=== PATIENT | female | born 1965 | race Caucasian/White ===

== ENCOUNTER → 2018-09-11 08:36 | Outpatient (CLI) | payer OTHER, SELFPAY ==
[2018-09-11 10:42] LABS: Free T4, Direct Thyroxine 1.14 ng/dL (0.78-2.19)
[2018-09-11 10:56] LABS: Thyroid Stimulating Hormone 0.77 uIU/mL (0.47-4.68)
== END ==
PROVIDERS: PCP Internal Medicine; Visit Provider Internal Medicine
DX: E03.9 Hypothyroidism, unspecified (principal)
CPT/HCPCS: 36415; 84439; 84443

== ENCOUNTER 2018-11-29 03:42 | Emergency (ER) | payer OTHER, SELFPAY ==
[2018-11-29 03:45] VITALS: BP 117/78; PULSE 76; RESP 18; TEMP 36.6; O2SAT 100; BMI 24.3
--- NOTE | 2018-11-29 03:57 | ED_ITS ---
HPI - Fall General Chief Complaint: Fall Stated Complaint: dog caused fall, hit head blacked out Time Seen by Provider: 11/29/18 03:56 Source: patient Mode of arrival: ambulatory Limitations: no limitations History of Present Illness HPI Narrative: Prior to arrival patient was up at home. As she negotiated, her dog came up behind her and tripped her. She fell backward on the floor in her bedroom, striking the back of her head. She has a mild headache, but has no focal pain in the head. She reports brief LOC and confusion. She reports feeling fuzzy for a few minutes. she is healthy, oriented, and nearly asymptomatic upon arrival. She has no bleeding from the nose, mouth or ears. No swelling or pain on the head. Vision is normal. She has no tenderness in her back or neck. She has no weakness in her extremities. She is alert, she drove herself to the ER. Related Data Previous Rx's Medication Instructions Recorded levothyroxine 150 mcg tablet 150 mcg PO QAM #90 tab 09/09/18 amitriptyline 10 mg tablet 10 mg PO Q DAY #90 tab 09/20/18 cetirizine 10 mg tablet 10 mg PO Q DAY #90 tab 09/20/18 citalopram 20 mg tablet 20 mg PO QDAY #90 tab 09/20/18 montelukast 10 mg tablet 10 mg PO QDAY #90 tab 09/20/18 Allergies Allergy/AdvReac Type Severity Reaction Status Date / Time retapamulin [RETAPAMULIN] Allergy Mild REDNESS/NON Verified 07/17/18 08:22 HEALING WOUND Review of Systems Review of Systems ROS Unobtainable: All systems reviewed & are unremarkable except as noted in HPI and below Constitutional Reports as per HPI, Denies chills, Denies lethargy, Denies weakness and Reports other ( Minor headache) Eyes Denies change in vision and Denies loss of vision ENT Ears, Nose, Mouth, and Throat: Reports as per HPI, Denies change in voice, Denies vertigo, Reports dizziness ( initially, now improved.), Denies neck pain and Denies sore throat Cardiovascular Denies lightheadedness and Denies palpitations Musculoskeletal Denies back pain, Denies muscle weakness and Denies neck pain Neurologic Denies behavioral changes, Denies vertigo, Reports dizziness ( initially, now improved.), Denies loss of vision and Denies weakness Psychiatric Denies behavioral changes Endocrine Denies palpitations Exam Initial Vital Signs Initial Vital Signs: Vital Signs Temperature 97.9 F 11/29/18 03:45 Pulse Rate 76 11/29/18 03:45 Respiratory Rate 18 11/29/18 03:45 Blood Pressure 117/78 11/29/18 03:45 Pulse Oximetry 100 11/29/18 03:45 Const General: cooperative, healthy appearing, comfortable, well developed, well groomed, No acute distress and No anxious Nutritional Appearance: well nourished Orientation: alert, awake, oriented x3 and not confused [facility] Head: normocephalic and atraumatic Ears: external ears normal and TM's normal bilaterally Nose: external nose normal and No nasal discharge Face and sinus: sinuses nontender and face symmetric Mouth: oral mucosae normal and moist mucous membranes Teeth and gingiva: dentition normal Throat: posterior oropharynx normal, tonsils normal and uvula midline Eyes General: appearance normal, both eyes and all related structures Eyelids: eyelids normal Conjunctivae: conjunctivae normal Sclera: sclerae normal Pupils: PERRL EOM: EOM intact bilaterally Neck Neck: normal visual inspection, full ROM and No tender Skin General: no rashes or lesions noted, No jaundice and No petechiae Neuro General: alert, oriented x3, gait normal and no focal motor deficits Speech: speech normal Gait: normal gait Motor: muscle tone normal throughout Sensory Exam: no sensory deficits noted Coordination: [id number] test normal and [id number] test normal Extrem General: full ROM [facility] Medical History Fibromyalgia (Inactive) Acquired hypothyroidism (Chronic) Allergic rhinitis (Chronic) Surgical History Status post colonoscopy Family History Brother Age: 44 Hepatitis C Child Age: 17 Autoimmune urticaria Father Age: 77 Colon cancer high risk Atrial fibrillation Heart disease Hypertension High cholesterol Mental health problem Grandmother Heart disease Mother Age: 74 Pancreatic cancer Grandfather Colon cancer high risk Grandmother Stroke Sister Age: 47 Severe depression Mental health problem Social History Smoking Status: Never smoker Course Course Narrative: The patient was rightfully concerned because of the fall and head injury with brief loss of consciousness. However she recovered nearly immediately. She is oriented, her neurologic exam is intact. She has no deficits other than a slight head discomfort. She is discharged home with Tylenol as needed. Vital Signs - 8 hr 11/29/18 03:45 Temperature 97.9 F Pulse Rate 76 Respiratory Rate 18 Blood Pressure 117/78 Pulse Oximetry 100 Discharge Plan Departure Patient Disposition: Home Clinical Impression: Concussion Discharge Date/Time: 11/29/18 04:26 Instructions: Concussion Activity Restrictions/Additional Instructions: A head injury with any change in mental status can be considered a concussion. You had brief loss of consciousness, and a period of fuzziness. Even the headache counts. More significant concerns would be prolonged loss of consciousness, confusion, memory loss, focal neurologic deficits. By comparison your symptoms are very minor. Take Tylenol if necessary for the headache. review the concussion instructions. Return here if necessary. Prescriptions: No Action levothyroxine 150 mcg tablet 150 mcg PO QAM Qty: 90 RF: 3 cetirizine 10 mg tablet 10 mg PO Q DAY Qty: 90 RF: 0 amitriptyline 10 mg tablet 10 mg PO Q DAY Qty: 90 RF: 0 montelukast [Singulair] 10 mg tablet 10 mg PO QDAY Qty: 90 RF: 0 citalopram [Celexa] 20 mg tablet 20 mg PO QDAY Qty: 90 RF: 3
== END 2018-11-29 04:26 | disposition home or self-care (01) ==
PROVIDERS: Emergency Provider Emergency Medicine; Family Provider Internal Medicine; PCP Internal Medicine
DX: S06.0X9A Concussion with loss of consciousness of unspecified duration, initial encounter (principal); W01.0XXA Fall on same level from slipping, tripping and stumbling without subsequent striking against object, initial encounter
CPT/HCPCS: 93005; 93010; 99282; 99283

== ENCOUNTER → 2018-12-06 10:06 | Outpatient (CLI) | payer OTHER, SELFPAY ==
[2018-12-06 12:18] LABS: Alanine Aminotransferase 26 IU/L (9-52); Albumin 4.5 g/dL (3.5-5.0); Albumin Globulin Ratio 1.5 (1.0-2.8); Alkaline Phosphatase 51 U/L (38-126); Aspartate Aminotransferase 23 IU/L (14-36); BUN Creatinine Ratio 15.6 (6-22); Bilirubin Total 0.8 mg/dL (0.2-1.3); Blood Urea Nitrogen 14 mg/dL (7-17); Calcium 9.8 mg/dL (8.4-10.2); Carbon Dioxide 28 mmol/L (22-32); Chloride 101 mmol/L (98-107); Cholesterol 237 mg/dL (140-199); Estimated Glomerular Filt Rate > 60.0 mL/min (>60); Glucose 80 mg/dL (70-100); HDL Cholesterol 78 mg/dL (40-60); HEMOLYSIS < 15 (0-50); LDL Cholesterol Calculated 139 mg/dL (<100); Potassium 4.1 mmol/L (3.4-5.1); Sodium 138 mmol/L (137-145); Total Protein 7.5 g/dL (6.3-8.2); Triglycerides 99 mg/dL (35-150)
[2018-12-06 12:53] LABS: Free T4, Direct Thyroxine 1.23 ng/dL (0.78-2.19)
[2018-12-06 13:07] LABS: Thyroid Stimulating Hormone 1.69 uIU/mL (0.47-4.68)
== END ==
PROVIDERS: PCP Internal Medicine; Visit Provider Internal Medicine
DX: E03.9 Hypothyroidism, unspecified (principal); Z00.00 Encounter for general adult medical examination without abnormal findings; Z13.6 Encounter for screening for cardiovascular disorders
CPT/HCPCS: 36415; 80053; 80061; 84439; 84443

== ENCOUNTER → 2019-01-03 11:12 | Outpatient (CLI) | payer OTHER, SELFPAY ==
--- NOTE | 2019-01-03 | DI.MG.S_ITS ---
BILATERAL DIGITAL SCREENING MAMMOGRAM 3D/2D WITH CAD: 01/03/2019 CLINICAL: Routine screening. Comparison is made to exams dated: 07/20/2017 mammogram, 03/08/2016 mammogram, and 07/30/2013 mammogram - [facility]. The tissue of both breasts is heterogeneously dense. This may lower the sensitivity of mammography. Current study was also evaluated with a Computer Aided Detection (CAD) system. No significant masses, calcifications, or other findings are seen in either breast. There has been no significant interval change. IMPRESSION: NEGATIVE There is no mammographic evidence of malignancy. A 1 year screening mammogram is recommended. This exam was interpreted at Station ID: [id number]. NOTE: For mammograms, a report in lay terms will be sent to the patient. Approximately 15% of breast malignancies will not be visualized mammographically. In the management of a palpable breast mass, a negative mammogram must not discourage biopsy of a clinically suspicious lesion. Electronically Signed By: Juan Jose aviles/rocky:01/03/2019 12:28:45 letter sent: Normal Exam ACR BI-RADS Category 1: Negative 3341F
== END ==
PROVIDERS: Family Provider Internal Medicine; PCP Internal Medicine; Visit Provider Internal Medicine
DX: Z12.31 Encounter for screening mammogram for malignant neoplasm of breast (principal)
CPT/HCPCS: 77063; 77067

== ENCOUNTER → 2019-02-15 09:51 | Outpatient (CLI) | payer OTHER, SELFPAY | PROVIDERS: Family Provider Internal Medicine; PCP Internal Medicine; Visit Provider Physician Assistant | DX: J02.9 Acute pharyngitis, unspecified (principal) | CPT/HCPCS: 87070 ==

== ENCOUNTER → 2019-11-14 10:44 | Outpatient (CLI) | payer OTHER, SELFPAY ==
[2019-11-14 11:57] LABS: Alanine Aminotransferase 19 IU/L (<35); Albumin 4.5 g/dL (3.5-5.0); Albumin Globulin Ratio 1.5 (1.0-2.8); Alkaline Phosphatase 63 U/L (38-126); Aspartate Aminotransferase 24 IU/L (14-36); BUN Creatinine Ratio 15.6 (6-22); Bilirubin Total 0.9 mg/dL (0.2-1.3); Blood Urea Nitrogen 14 mg/dL (7-17); Calcium 10.3 mg/dL (8.4-10.2); Carbon Dioxide 29 mmol/L (22-32); Chloride 103 mmol/L (98-107); Estimated Glomerular Filt Rate > 60.0 mL/min (>60); Glucose 86 mg/dL (70-100); HEMOLYSIS < 15 (0-50); Potassium 4.4 mmol/L (3.4-5.1); Sodium 139 mmol/L (137-145); Total Protein 7.5 g/dL (6.3-8.2)
[2019-11-14 12:13] LABS: Free T4, Direct Thyroxine 1.16 ng/dL (0.78-2.19)
[2019-11-14 12:27] LABS: Thyroid Stimulating Hormone 4.76 uIU/mL (0.47-4.68)
== END ==
PROVIDERS: PCP Internal Medicine; Visit Provider Internal Medicine
DX: D12.6 Benign neoplasm of colon, unspecified (principal); E03.9 Hypothyroidism, unspecified
CPT/HCPCS: 36415; 80053; 84439; 84443

== ENCOUNTER → 2020-01-05 11:07 | Outpatient (CLI) | payer OTHER, SELFPAY ==
--- NOTE | 2020-01-05 | DI.MG.S_ITS ---
BILATERAL DIGITAL SCREENING MAMMOGRAM 3D/2D WITH CAD: 01/05/2020 CLINICAL: Routine screening. Comparison is made to exams dated: 01/03/2019 mammogram, 07/20/2017 mammogram, and 03/08/2016 mammogram - [facility]. The tissue of both breasts is heterogeneously dense. This may lower the sensitivity of mammography. Current study was also evaluated with a Computer Aided Detection (CAD) system. No significant masses, calcifications, or other findings are seen in either breast. There has been no significant interval change. IMPRESSION: NEGATIVE There is no mammographic evidence of malignancy. A 1 year screening mammogram is recommended. This exam was interpreted at Station ID: [id number]. NOTE: For mammograms, a report in lay terms will be sent to the patient. Approximately 15% of breast malignancies will not be visualized mammographically. In the management of a palpable breast mass, a negative mammogram must not discourage biopsy of a clinically suspicious lesion. Electronically Signed By: Elis santana/rocky:01/05/2020 12:31:04 letter sent: Normal Exam ACR BI-RADS Category 1: Negative [id number]
== END ==
PROVIDERS: PCP Internal Medicine; Referring Provider Internal Medicine; Visit Provider Internal Medicine
DX: Z12.31 Encounter for screening mammogram for malignant neoplasm of breast (principal)
CPT/HCPCS: 77063; 77067